=== PATIENT | male | born 1965 | race Caucasian/White ===

== ENCOUNTER 2024-07-24 22:53 | Inpatient (IN) | payer MEDICAID ==
[~2024-07-24] VITALS: Ht 185.4 cm; Wt 90.0 kg
[2024-07-24] MEDS: HYDROcodone/acetaminophen 5mg/325mg tablet PO STA (23:29)
[2024-07-24] MEDS: ondansetron 4mg rapidly disintigrating tab PO ONE (23:47)
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
[2024-07-24] MEDS: ketorolac trometh 15mg/ml vial 15 MG/ML ML IV ONE (23:58)
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
--- NOTE | 2024-07-25 00:04 | RADIOLOGY REPORT ---
CLINICAL INDICATION: RIGHT KNEE PAIN AND SWELLING TECHNIQUE: DI KNEE, COMP 4 VW MIN Comparison: None FINDINGS/IMPRESSION: : There is no evidence of acute fracture or dislocation. Moderate prepatellar and suprapatellar soft tissue swelling and edema. Soft tissues are otherwise unr emarkable.
[2024-07-25] MEDS: normal saline 1000ml 1,000 ML IV ONE (00:17)
--- NOTE | 2024-07-25 01:22 | RADIOLOGY REPORT ---
Exam: CT CT LOWER EXTREMITY History: Right knee pain Comparison Study: None TECHNIQUE: Multidetector CT of the abdomen and pelvis was performed from lung bases to pubic symphysi s. Imaging was performed without IV contrast. Axial, coronal, and sagittal multiplanar reformats were obtained from the axial data set by the technologist. RADIATION DOSE: DLP 16.76 mGy.cm; CTDI vol 579.42 mGy. Findings: There is no acute displaced fracture. There are degenerative changes about the knee characterized by osteophytosis of the patella. The join t spaces appearing maintained. There is extensive swelling and infiltration of the anterior soft tissues with a large heterogeneous hematoma along the superolateral aspect of the knee. Impression: 1. No acute displaced fracture. 2. Extensive subcutaneous stranding and swelling of the anterior knee with a large hematoma. Evaluati on for active bleeding is limited in the absence of IV contrast.
[2024-07-25] MEDS: morphine 4 MG/ML inj SYRINge IV ONE (01:48)
[2024-07-25] MEDS: bacitracin 15gm ointment TP ONE (01:53)
[2024-07-25] MEDS ORDERED: potassium Cl 40MEQ/1/2NS 520ml 520 ML IV PRN (02:00)
[2024-07-25] MEDS ORDERED: morphine 2 MG/ML inj. syringe IV PRN (02:00)
[2024-07-25] MEDS ORDERED: HYDROcodone/acetaminophen 5mg/325mg tablet PO PRN (02:00)
[2024-07-25] MEDS ORDERED: magnesium Cl slow-release 64mg tablet PO PRN (02:00)
[2024-07-25] MEDS ORDERED: magnesium sulf-water 2g/50mL 50 ML IV PRN (02:00)
[2024-07-25] MEDS ORDERED: ondansetron/PF 4mg/2ml inj IV PRN (02:00)
[2024-07-25] MEDS ORDERED: magnesium sulf-water 4G/100mL 100 ML IV PRN (02:00)
[2024-07-25] MEDS ORDERED: acetaminophen 325mg tablet PO PRN (02:00)
[2024-07-25] MEDS ORDERED: potassium Cl 20 mEq SR tablet PO PRN ×2 (02:00)
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
[2024-07-25 03:32] VITALS: BP 165/75; PULSE 57; RESP 19; TEMP 97.8; O2SAT 98
[2024-07-25] MEDS: HYDROcodone/acetaminophen 10/325mg tab PO PRN (03:46)
[2024-07-25] MEDS: morphine 4 MG/ML inj SYRINge IV PRN (05:45)
[2024-07-25 06:00] VITALS: BP 128/63; PULSE 55; RESP 14; TEMP 97.4; O2SAT 98
[2024-07-25 08:00] VITALS: RESP 15; O2SAT 98
[2024-07-25] MEDS: K and/or MAG REPLACEMENT MC SCH (08:00)
[2024-07-25] MEDS ORDERED: cloNIDine 0.1 mg tablet PO PRN (08:20)
[2024-07-25 08:51] LABS: BASOPHILS % (AUTO) 0.5 % (0-1); EOSINOPHILS # (AUTO) 0.1 X10'3 (0-0.9); EOSINOPHILS % (AUTO) 1.1 % (0-6); HEMATOCRIT 36.9 % (42.0-52.0); HEMOGLOBIN 12.6 g/dl (14.0-17.9); LYMPHOCYTES # (AUTO) 2.1 X10'3 (1.1-4.8); LYMPHOCYTES % (AUTO) 28.9 % (21-51); MEAN CORPUSCULAR HEMOGLOBIN 30.9 PG (27.0-31.0); MEAN CORPUSCULAR HGB CONC 34.1 g/dL (33.0-36.5); MEAN CORPUSCULAR VOLUME 90.6 FL (78-98); MEAN PLATELET VOLUME 8.8 FL (7.4-10.4); MONOCYTES # (AUTO) 0.7 X10'3 (0-0.9); MONOCYTES % (AUTO) 9.3 % (2-12); NEUTROPHILS # (AUTO) 4.3 X10'3 (1.8-7.7); NEUTROPHILS % (AUTO) 60.2 % (42-75); PLATELET COUNT 148 X10'3 (140-440); RED BLOOD COUNT 4.08 X10'6 (4.70-6.10); RED CELL DISTRIBUTION WIDTH 13.4 % (11.5-14.5); WHITE BLOOD COUNT 7.2 X10'3 (4.5-11.0)
[2024-07-25 09:03] LABS: APTT 25 SECONDS (22-32); INR 1.1 INR; PROTHROMBIN TIME 10.9 SECONDS (9.0-12.0)
[2024-07-25 09:06] LABS: ALANINE AMINOTRANSFERASE 34 U/L (12-78); ALBUMIN 3.3 G/DL (3.4-5.0); ALBUMIN/GLOBULIN RATIO 1.1 (1.1-1.5); ALKALINE PHOSPHATASE 54 IU/L (46-116); ANION GAP 9 (8-16); ASPARTATE AMINO TRANSFERASE 27 U/L (10-37); BILIRUBIN,TOTAL 1.3 MG/DL (0.1-1.0); BLOOD UREA NITROGEN 20 MG/DL (7-18); BUN/CREATININE RATIO 25.6 (10.0-20.0); CALCIUM 8.1 MG/DL (8.5-10.1); CHLORIDE 109 MMOL/L (99-107); CREATININE 0.78 MG/DL (0.60-1.10); GLUCOSE 90 MG/DL (70-104); POTASSIUM 3.8 MMOL/L (3.5-5.1); SODIUM 145 MMOL/L (135-145); TOTAL CARBON DIOXIDE 26.7 MMOL/L (24-32); TOTAL PROTEIN 6.2 G/DL (6.4-8.2); eCRCL 112 ML/MIN; eGFR > 90 ML/MIN
[2024-07-25 10:00] VITALS: BP 137/63; PULSE 55; RESP 18; TEMP 97.9; O2SAT 98
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
== END 2024-07-25 14:20 | disposition left against medical advice (07) | DRG 384 ==
LOC: ER 22:55 → ED HOLD 07-25 02:01 → SUR 3N 07-25 03:30
PROVIDERS: ADMIT Internal Medicine Pulmonary Disease; ATTEND Internal Medicine
DX: S80.01XA Contusion of right knee, initial encounter (principal); S50.312A Abrasion of left elbow, initial encounter; S80.212A Abrasion, left knee, initial encounter; Z53.21 Procedure and treatment not carried out due to patient leaving prior to being seen by health care provider; V29.99XA Rider (driver) (passenger) of other motorcycle injured in unspecified traffic accident, initial encounter; Y93.89 Activity, other specified; Y92.89 Other specified places as the place of occurrence of the external cause; Y99.8 Other external cause status
CPT/HCPCS: 36415; 71045; 73564; 73700; 80053; 85025; 85610; 85730; 87081; 96374; 99285; A6223; A6449; G0378; J1885; J2270; J7030

== ENCOUNTER 2024-11-06 21:08 | Emergency (ER) | payer MEDICAID, SELFPAY ==
[~2024-11-06] VITALS: Ht 185.4 cm; Wt 88.6 kg
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
--- NOTE | 2024-11-06 22:28 | RADIOLOGY REPORT ---
CLINICAL INDICATION: shoulder injury LEFT TECHNIQUE: DI SHOULDER, COMPLETE (MIN 2 VWS) Comparison: None FINDINGS/IMPRESSION: : There is no evidence of acute fracture or dislocation. Moderate degenerative narrowing of the acromioclavicular joint. There is mild left acromioclavicular joint osteoarthritis with osteophyte formation. There is a healing fracture of the posterior left 6th rib with callus formation. There is a left-sided dual lead pacemaker partially imaged.
[2024-11-06] MEDS: ketorolac trometh 30MG/ML vial 30 MG/ML VIAL IM ONE (22:40)
[2024-11-06 22:50] VITALS: BP 142/72; PULSE 60; RESP 18; TEMP 98.6; O2SAT 99
== END 2024-11-06 22:51 | disposition home or self-care (01) ==
LOC: ER 21:08
DX: M25.512 Pain in left shoulder (principal); V29.99XA Rider (driver) (passenger) of other motorcycle injured in unspecified traffic accident, initial encounter; Y93.89 Activity, other specified; Y92.89 Other specified places as the place of occurrence of the external cause; Y99.8 Other external cause status
CPT/HCPCS: 73030; 96372; 99283; J1885

== ENCOUNTER 2024-11-21 12:54 | Emergency (ER) | payer MEDICAID ==
[~2024-11-21] VITALS: Ht 185.4 cm; Wt 86.4 kg
[2024-11-21 13:01] VITALS: TEMP 98.4
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
[2024-11-21] MEDS ORDERED: GABA-535 PO (13:36)
[2024-11-21] MEDS ORDERED: HYDR-3965 PO (13:36)
[2024-11-21] MEDS: HYDROcodone/acetaminophen 10/325mg tab PO ONE (14:01)
[2024-11-21 14:04] VITALS: BP 159/82; PULSE 56; RESP 18; O2SAT 99
== END 2024-11-21 14:18 | disposition home or self-care (01) ==
LOC: ER 12:54
DX: M25.512 Pain in left shoulder (principal); G47.9 Sleep disorder, unspecified
CPT/HCPCS: 99283